=== PATIENT | female | born 1975 | race Caucasian/White ===

== ENCOUNTER 2025-04-02 07:15 | Day surgery (SDC) | payer OTHER, SELFPAY ==
--- OUTSIDE RECORDS SUMMARY | 2024-01-20 03:15 | XMS_ITS ---
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 Name Role Phone Mat Alcala Primary Care Provider SHYAM Mendoza [phone] Encounters Encounter Location Date Provider Diagnosis [facility] [address] [id number] 01/20/2024 SHYAM VELASQUEZ Plan Of Treatment No Information Progress Notes * Lizzeth VAUGHNDOB:[birth year] (50 yo F)Acc No.[id number]:01/20/2024 Patient: Lizzeth Pablo Provider: aMribel VELASQUEZ PA-C :1975 A ge:48 Y S ex:Female Date:01/20/2024 Address:[address] [place], [place] [phone] Pcp:Mat Alcala * Electronic signature of BAYRON VELASQUEZ PA-C on 04/02/2025 at 07:13 AM EST Sign off status: Pending * Provider: Maribel VELASQUEZ PA-C Date: Generated for Florentino pino/Karis/eTdericsmitting on: 06/03/2024 07:13 AM EST
[2025-03-29 15:16] VITALS: BMI 44.5
--- NOTE | ~2025-04-02 | FL_ITS ---
EXAMINATION: FL GUIDANCE ONLY HISTORY: Procedural guidance COMPARISON: None available. TECHNIQUE: Fluoroscopy time: 26 seconds. Cumulative Dose: 9.30 mGy. DAP: 403.75 uGym2 Images: 3. FINDINGS: Fluoroscopic spot films of the lumbosacral junction demonstrate needles and contrast material in the regions of the bilateral L5-S1 facet joints. FL/FL guidance in OR IMPRESSION: Fluoroscopy during procedure. Please see procedure report for additional information. Electronically signed by: Munir See MD 04/03/2025 07:18 AM MALAIKA
--- OUTSIDE RECORDS SUMMARY | 2025-04-02 07:13 | XMS_ITS | Continuity of Care Document ---
Author Organization [facility] Address [address] [facility] [address] [place] [address] Insurance Providers Payer Plan Claims Address Claims Phone Policy Number Group Number Relation Employer Guarantor Name Guarantor Guarantor Address Guarantor Phone RAOUL Leblanc [address] [facility] [address] [address] [id number] Self Lizzeth Vaughn 1975 [facility] [place] [id number] [facility] PPO [id number] Self Lizzeth Vaughn 1975 [facility] [place] [address] Raoul garcía [place] [id number] Self Lizzeth Vaughn 1975 [facility] [place] [address] Problems Condition ICD9 code ICD10 code SNOMED code Start Date End Date S tatus Encounter for screening for other metabolic disorders Z13.228 Results No Results Allergies, adverse reactions, alerts No known allergies and adverse reactions Medications No administered medications reported Vital Signs No vital signs reported Social History No smoking Hx information available
--- OUTSIDE RECORDS SUMMARY | 2025-04-02 07:13 | XMS_ITS | Clinical Summary ---
Author Organization 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 Name Role Phone Unavailable Primary Care Provider Unavailabl e Social History Tobacco Use Types Packs/Day Years Used Date Smoking Tobacco: Never Assessed Comments Unknown Sex and Gender Information Value Date Recorded Sex Assigned at Not on file Legal Sex Female 1:35 PM EDT Gender Identity Not on file Sexual Orientation Not on file Plan of Treatment Upcoming Encounters Date Type Department Care Team (Late st Contact Info) Description 07/19/2025 2:30 PM EDT Office Visit Bariatric Surgery - [address] [place] [phone] Batool Gonzalez MD [address] [place] [phone] Health Maintenance Due Date Last Done Comments Breast Cancer Screening 1975 Colorectal Cancer Screening: Colonoscopy 1975 Cervical Cancer Screening: Pap Smear 1994 Pneumococcal Vaccine: 50+ Years (2 of 2 - PCV) 04/02/2009 04/02/2008 RSV Immunization Adult Patients (1 - Risk 50-74 years 1-dose series) 2023 Zoster Vaccines (1 of 2) 2023 Cholesterol Screening (Lipid Panel) 11/16/2023 HIV Screening 11/16/2023 Hepatitis C Screening 11/16/2023 Social Influencers of Health Screening 11/16/2023 Depression Screening 04/19/2024 Hepatitis B Vaccines (3 of 3 - 19+ 3-dose series) 08/15/2024 03/14/2024, 2024 COVID-19 Vaccine ( season) 2024 04/05/2023, 07/22/2021, 04/25/2020 Influenza Vaccine (#1) 2024 4, 02/05/2022, 01/31/2021, Additional history exists DTaP,Tdap,and Td Vaccines (2 - Td or Tdap) 07/17/2027 07/16/2017 Hepatitis A Vaccines Aged Out 2024 No long er eligible based on patient's age to complete this topic HIB Vaccines Aged Out No longer eligi ble based on patient's age to complete this topic HPV Vaccines Aged Out No longer eligi ble based on patient's age to complete this topic IPV Vaccines Aged Out No longer eligi ble based on patient's age to complete this topic MMR Vaccines Aged Out No longer eligi ble based on patient's age to complete this topic Meningococcal ACWY Vaccine Aged Out N o longer eligible based on patient's age to complete this topic Meningococcal B Vaccine Aged Out No l onger eligible based on patient's age to complete this topic RSV Immunization Patients Under 20 months Aged Out No longer eligible based on patient's age to complete this topic Varicella Vaccines Aged Out No longer eligible based on patient's age to complete this topic Insurance
--- OUTSIDE RECORDS SUMMARY | 2025-04-02 07:14 | XMS_ITS | Patient Health Record ---
Author Organization [facility] [address] Address [address] [place] [address] Care Team Providers Care Lock Operator Name Role Phone Mat Alcala Primary Care Provider SHYAM Mendoza Unavailable [phone] Reason For Referral No Information Medications Medication SIG (Take, Route, Frequency, Duration) Notes Start Date End Date Status oxyBUTYnin Chloride ER 15 MG Tablet Extended Release 24 Hour 1 tablet Orally Once a day Active Omeprazole 20 MG Capsule Delayed Release 1 capsule 30 minutes before morning meal Orally Once a day Active Famotidine 20 MG Tablet 1 tablet at bedt castro as needed Orally Once a day Active Spironolactone 50 MG Tablet 1 tablet Ora lly Once a day Active Montelukast Sodium 10 MG Tablet 1 tablet Orally Once a day Active Naproxen 500 MG Tablet 1 tablet with roshan d or milk as needed Orally every 12 hrs Active Albuterol Active Social History Section Notes: Smoking/Alcohol: No Problems Problem Type SNOMED Code ICD Code Onset Dates Problem Status W/U Status Risk Notes Problem Morbid obesity (882002389) Morbid obesity (E66.01) Active confirmed Problem Arthritis (9035090) Arthritis (M19.90) Active c onfirmed Problem Body mass index 40+ - morbidly obese (185411070) BMI 40.0-44.9, adult (Z68.41) Active confirmed Problem Mild intermittent asthma (072253429) Mild intermittent asthma without complication (J45.20) Active confirmed Problem Gastroesophageal reflux disease (775682806) Gastroesophageal reflux disease, unspecified whether esophagitis present (K21.9) Active confirmed Problem Polycystic ovary syndrome (disorder) (261306244) PCOS (polycystic ovarian syndrome) (E28.2) Active confirmed Problem Gastroesophageal reflux disease (584629457) GERD without esophagitis (K21.9) Active confirmed Problem Asthma (932866968) Asthma (J45.909) Active conf irmed Problem Upper gastrointestinal surgery (727982635) History of gastric surgery (Z98.890) Active confirmed Plan Of Treatment No Information Insurance Providers Payer Name Payer Address Payer Phone Subscriber Number Group Number Insured Name Patient Relationship to Insured Coverage Start Date Coverage End Date [facility] [address] [place] [address] [phone] [id number] Lizzeth Vaughn Self - patient is the insured Medical (General) History Medical History History ICD Code GERD without esophagitis K21.9 Asthma J45.909 PCOS (polycystic ovarian syndrome) E28.2 Arthritis M19.90 Surgical History Surgery Date(Month/Year) Excision of Bartholin cyst/Transobturato r Midurethral Sling
--- NOTE | 2025-04-02 08:10 | HO.ANESPROP2 ---
[facility] Active Problems Active Problems: All Active Problems Lumbar radiculitis (Acute) Past Medical History Medical History Biliary dyskinesia Obesity PCOS (polycystic ovarian syndrome) Asthma Lumbar radiculitis Family History Family history of problems with anesthesia: No Surgical History Surgical History History of bladder surgery S/P panniculectomy Hx of endoscopy (2016) History of esophagogastroduodenoscopy (EGD) (03/2020) Hx of laparoscopic gastric banding (2010) History of Problems with Anesthesia: No Social History Social History Advance Directives: No Advance Directives Information Provided: Yes Meds Allergies Allergy/AdvReac Type Severity Reaction Status Date / Time apple Allergy Difficulty Verified 03/29/25 15:20 Breathing cat dander (cats) Allergy Unknown Verified 03/29/25 15:20 traylor Allergy Anaphylaxis Verified 03/29/25 15:20 dog dander (dogs) Allergy Unknown Verified 03/29/25 15:20 kiwi Allergy Difficulty Verified 03/29/25 15:20 Breathing nut - unspecified Allergy Difficulty Verified 03/29/25 15:20 Breathing soy Allergy Difficulty Verified 03/29/25 15:20 Breathing, ears itching Home Medications ?Medication ?Instructions ?Recorded ?Confirmed ?Last Taken ?Type Epi E-Z Pen 03/29/25 Unknown History albuterol sulfate 90 mcg/actuation 2 puff inhalation QID PRN wheezing 03/29/25 03/29/25 Unknown History aerosol inhaler fluticasone propionate 50 2 spray intranasal Q12H 03/29/25 03/29/25 Unknown History mcg/actuation nasal spray,suspension loratadine 10 mg tablet 10 mg PO DAILY 03/29/25 03/29/25 Unknown History lorazepam 0.5 mg tablet 0.5 - 1 mg PO 03/29/25 Unknown History melatonin 10 mg tablet 10 mg PO BEDTIME PRN Insomnia 03/29/25 03/29/25 Unknown History montelukast 10 mg tablet 10 mg PO DAILY 03/29/25 03/29/25 Unknown History naproxen 500 mg tablet 500 mg PO BID PRN pain 03/29/25 03/29/25 Unknown History omeprazole 20 mg capsule,delayed 20 mg PO BID PRN indigestion 03/29/25 03/29/25 Unknown History release oxybutynin chloride 15 mg 15 mg PO DAILY 03/29/25 03/29/25 Unknown History tablet,extended release 24 hr sodium chloride 0.65 % nasal spray 2 spray intranasal QID PRN Dry 03/29/25 03/29/25 Unknown History aerosol (Saline Mist) Nasal Passages spironolactone 50 mg tablet 50 mg PO BID 03/29/25 03/29/25 Unknown History Exam Height,Weight and Vital Signs: Height 4 ft 10.66 in Weight 98.8 kg Airway TM Dist: >3cm Neck ROM: Full Heart: rrr Lungs: cta Assessment and Plan Assessment Anesthesia Assessment: Anesthesia Plan Discussed and Chart Reviewed Final Anesthetic Review Family History of Problems with Anesthesia: No History of Problems with Anesthesia: No NPO: Yes ASA Class: II Final Preanesthetic Review: No Changes in Pt Med Stat, Meds/Allgs Chart Reviewed and Consent Obtained/Reviewed Patient Risk: Low Procedure Risk: Low Anesthetic Plan Anesthetic Plan: MAC: and Agree w/ Assess. and Plan Disposition: Standard PACU
[2025-04-02 08:33] VITALS: BMI 42.9
--- NOTE | 2025-04-02 08:33 | HO.ANESPROP2 ---
HPI - Anesthesia Eval Consult details Narrative: 50 yr old female for bilateral L5 Lumbar Transforaminal SALVADOR GERD: on PPI PMFSH Active Problems Active Problems: All Active Problems (Updated 04/02/25 @ 08:28 by Ruba Peralta, RN) Lumbar radiculitis (Acute) Past Medical History Medical History (Updated 04/02/25 @ 08:28 by Ruba Peralta, RN) History of rectal prolapse GERD (gastroesophageal reflux disease) Biliary dyskinesia Obesity PCOS (polycystic ovarian syndrome) Asthma Lumbar radiculitis Family History Family history of problems with anesthesia: No Surgical History Surgical History S/P panniculectomy Hx of endoscopy (2016) History of esophagogastroduodenoscopy (EGD) (03/2020) Hx of laparoscopic gastric banding (2010) History of Problems with Anesthesia: No Social History Social History Advance Directives: No Advance Directives Information Provided: Yes Meds Allergies Allergy/AdvReac Type Severity Reaction Status Date / Time apple Allergy Difficulty Verified 04/02/25 08:29 Breathing cat dander (cats) Allergy Unknown Verified 04/02/25 08:29 traylor Allergy Anaphylaxis Verified 04/02/25 08:29 dog dander (dogs) Allergy Unknown Verified 04/02/25 08:29 kiwi Allergy Difficulty Verified 04/02/25 08:29 Breathing nut - unspecified Allergy Difficulty Verified 04/02/25 08:29 Breathing soy Allergy Difficulty Verified 04/02/25 08:29 Breathing, ears itching Active Medications: Current Medications Naloxone HCl (Naloxone Hcl 0.4 Mg/Ml Vial) 0.04 mg IVPUSH Q5M PRN PRN Reason: Excessive sedation or RR < 8 Home Medications ?Medication ?Instructions ?Recorded ?Confirmed ?Last Taken ?Type Epi E-Z Pen 03/29/25 Unknown History albuterol sulfate 90 mcg/actuation 2 puff inhalation QID PRN wheezing 03/29/25 03/29/25 Unknown History aerosol inhaler loratadine 10 mg tablet 10 mg PO DAILY 03/29/25 03/29/25 Unknown History lorazepam 0.5 mg tablet 0.5 - 1 mg PO DAILY PRN Anxiety 03/29/25 04/02/25 Unknown History montelukast 10 mg tablet 10 mg PO DAILY 03/29/25 03/29/25 Unknown History naproxen 500 mg tablet 500 mg PO BID PRN pain 03/29/25 03/29/25 Unknown History omeprazole 20 mg capsule,delayed 20 mg PO BID PRN indigestion 03/29/25 03/29/25 Unknown History release oxybutynin chloride 15 mg 15 mg PO DAILY 03/29/25 03/29/25 Unknown History tablet,extended release 24 hr magnesium tab PO DAILY 04/02/25 Unknown History Exam Height,Weight and Vital Signs: Height 4 ft 10.66 in Weight 98.8 kg Assessment and Plan Final Anesthetic Review Family History of Problems with Anesthesia: No History of Problems with Anesthesia: No
[2025-04-02 08:37] VITALS: BP 136/81; PULSE 72; RESP 14; TEMP 36.7; O2SAT 99
--- NOTE | 2025-04-02 08:40 | MHC.SHP ---
Pre-Procedural Eval Section A - 24 Hr Update-Section A only Date of Service: 04/02/25 The patient is an INPATIENT: No The patient has been examined within 24 hours of the surgical procedure. The History & Physical has been completed within 30 days and I have reviewed it.: Yes Section B - Complete if H&P > 30 days Chief Complaint: Radiculopathy, lumbar region Details of Present Illness: History of chronic lower back pain and lumbar radiculitis Relevant Family History (Specify if Yes): No Relevant Social History: None Present Medications: see Short Stay Collaborative assessment Medical History: No relevant PMH History of Previous Operations: No relevant previous surgery Allergies: Allergies Allergy/AdvReac Type Severity Reaction Status Date / Time apple Allergy Difficulty Verified 04/02/25 08:29 Breathing cat dander (cats) Allergy Unknown Verified 04/02/25 08:29 traylor Allergy Anaphylaxis Verified 04/02/25 08:29 dog dander (dogs) Allergy Unknown Verified 04/02/25 08:29 kiwi Allergy Difficulty Verified 04/02/25 08:29 Breathing nut - unspecified Allergy Difficulty Verified 04/02/25 08:29 Breathing soy Allergy Difficulty Verified 04/02/25 08:29 Breathing, ears itching Review of Systems Sugical H&P ROS: Negative: Constitution, Cardiovascular, Respiratory, Neurological, Psychiatric, Hem-Onc, Allergic/Immunologic, Gastrointestinal, Genitourinary, Musculoskeletal, Integumentary, Endocrine and Eyes/Ears/Nose/Throat Exam Surgical H&P Exam: Normal: HEENT, Normal: Heart, Normal: Lungs, Normal: Extremities, Normal: Abdomen, Normal: Skin and Normal: Neurological Plan Diagnosis/Plan: Unchanged I have reviewed the history and physical and performed a pertinent physical examination on my patient. No changes have occurred unless specified. Time Spent With Patient Time: Total time managing care of this patient today ____ minutes.
--- NOTE | 2025-04-02 08:41 | W.PM.OPN ---
Operative Note Operative Note Date of Service: 04/02/25 Narrative: Procedure performed: Bilateral L5 transforaminal epidural steroid injection Preop diagnosis: Lumbar radiculitis Postop diagnosis: The same Anesthesia: Mac After informed consent was obtained, patient was placed on the procedure table in a prone position. Skin over lumbosacral area was prepped and draped in usual sterile manner. Right L5 pedicle was visualized utilizing fluoroscopy. 5 inch 22 gauge spinal needle was introduced percutaneously and advanced towards the pedicle at about 6 o'clock position. Once level of neural foramina was reached, needle placement was verified utilizing 3 cc of Omnipaque contrast solution. Excellent flow through the neural foramina and epidural spread was identified without evidence of vascular uptake. Total volume of 6 cc containing 2 cc of 1% lidocaine, 40 mg of triamcinolone and normal saline solution were injected after negative aspiration for blood and cerebrospinal fluid. Identical procedure was repeated on the opposite side. Radiation exposure was documented in the chart.
[2025-04-02 08:42] LABS: UPreg QC Valid YES
[2025-04-02] MEDS: Lactated Ringers 1,000 ML 100 ML IVCONT (08:50)
[2025-04-02 09:37] VITALS: BP 128/73; PULSE 96; RESP 16; TEMP 37.1; O2SAT 99
[2025-04-02 09:50] VITALS: BP 138/75; PULSE 99; RESP 16; TEMP 36.3; O2SAT 99
== END 2025-04-02 10:27 | disposition home or self-care (01) ==
PROVIDERS: Anesthesiology; PCP Internal Medicine; Visit Provider Physical Medicine & Rehabilitation
PROC: (CPT 64483; principal; 2025-04-02 09:10)
DX: M54.16 Radiculopathy, lumbar region (principal); G89.29 Other chronic pain; M48.062 Spinal stenosis, lumbar region with neurogenic claudication; M19.90 Unspecified osteoarthritis, unspecified site; J45.909 Unspecified asthma, uncomplicated; Z79.899 Other long term (current) drug therapy; Z91.018 Allergy to other foods; Z98.84 Bariatric surgery status
CPT/HCPCS: 64483; 81025; J2003; J2250; J2704; J3301; Q9967

== ENCOUNTER → 2025-04-02 07:15 | Outpatient (BNV) | payer OTHER, SELFPAY | PROVIDERS: PCP Internal Medicine; Visit Provider Physical Medicine & Rehabilitation | DX: M54.16 Radiculopathy, lumbar region (principal) | CPT/HCPCS: 64483 ==